=== PATIENT | female | born 1950 | race Caucasian/White ===

== ENCOUNTER 2022-03-14 15:20 | Emergency (ER) | payer BC, SELFPAY ==
[2022-03-14 15:28] VITALS: BP 135/77; PULSE 74; RESP 14; TEMP 36.6; O2SAT 98; BMI 24.4
--- NOTE | 2022-03-14 15:33 | DI.RAD.S_ITS ---
PROCEDURE: XR HAND LT MIN 3V INDICATIONS: fall with hand injury TECHNIQUE: 3 views of the hand(s) acquired. COMPARISON: None. FINDINGS: Bones: There is a fracture of the 5th metacarpal which is obliquely oriented with no significant displacement. An avulsion of the distal phalanx of the thumb on the extensor side at the interphalangeal joint is well corticated and is probably a remote injury. The interphalangeal joints have degenerative changes with joint space narrowing. There are some erosions in the DIP joint of the middle finger. Postoperative changes of the distal radius with a sideplate. There is widening of the scapholunate interval. Soft tissues: No suspicious soft tissue calcifications. IMPRESSION: 1. Fracture of the 5th metacarpal. 2. Remote avulsion fracture versus osteophyte of the thumb interphalangeal joint. 3. Widening of the scapholunate interval suggests scapholunate dissociation. 4. Degenerative changes with erosions of the DIP of the middle phalanx. Dictated by: Kee Cordova M.D. on 03/14/2022 at 16:24 Approved by: Kee Cordova M.D. on 03/14/2022 at 16:27
--- NOTE | 2022-03-14 16:13 | ED.UPPEXIN ---
HPI - Extremity Injury (Upper) <NANI Coates - Last Filed: 03/14/22 19:13> General Chief Complaint: Extremity Injury, Upper Stated Complaint: lt hand injury s/p fall yesterday Time Seen by Provider: 03/14/22 15:39 Source: patient Mode of arrival: Ambulatory History of Present Illness HPI narrative: This is a 71-year-old female presents to the emergency department after she states she tripped on the boat and fell forward striking her hand on the railing injuring the dorsum of her left hand. She denies any mobility deficit, states that she has had multiple fractures and joint replacements in the past with a left hip replacement two months ago. Patient endorses prior history of left wrist surgery but states this has fully healed, she is right-handed, complains of pain on the dorsum of her left hand on the lateral aspect, she is able to flex and extend all her fingers without deficit, denies any numbness or tingling, endorses having bruising to the top of her hand, denies any weakness or hand. She denies any elbow or shoulder pain, denies striking her head, denies any other injury. Patient is here on vacation, states that she has an orthopedist back home in [facility] she can follow-up with. Related Data Allergies Allergy/AdvReac Type Severity Reaction Status Date / Time No Known Drug Allergies Allergy Verified 03/14/22 15:34 Review of Systems <NANI Coates - Last Filed: 03/14/22 19:13> Review of Systems Narrative: General: denies fever, chills, malaise, sweats, fatigue Head/Neck: denies headache, neck pain, dizziness Eyes: denies visual changes, eye pain Cardio: denies chest pain, palpitations, edema Respiratory: denies dyspnea, cough, orthopnea GI: denies abdominal pain, nausea, vomiting, or diarrhea : denies dysuria, hematuria, urinary retention, frequency or incontinence MSK: Endorses left hand pain, bruising, tenderness on the lateral aspect, denies any muscle weakness Skin: denies rash, itching, skin lesions or other Neuro: denies numbness, tingling Patient History <NANI Coates - Last Filed: 03/14/22 19:13> Social History Smoking Status: Unknown if ever smoked Smoking Status: Unknown if ever smoked alcohol intake frequency: holidays/special occasions only Substance Use Type: does not use Exam <NANI Coates - Last Filed: 03/14/22 19:13> Narrative Exam Narrative: Independently reviewed vitals signs and nursing notes. General: cooperative, comfortable, in no acute distress, well groomed Head: atraumatic, symmetrical facial expressions Neck: supple Eyes: equal round and reactive, EOMI, conjunctiva normal Nose: nares patent, no rhinorrhea Mouth/Throat: moist mucus membranes Cardiovascular: regular rate and rhythm, no peripheral edema, warm extremities Respiratory: normal effort, able to speak in complete sentences, no audible wheezing, stridor, or rales. No retractions or tachypnea. GI: abdomen soft, nontender to palpation, nondistended, no masses, no exquisite tenderness with exam, without guarding or rebound. MSK: moves all extremities, neurovascularly intact, no weakness, normal tone Skin: brisk capillary refill, no rash, ecchymoses on the lateral dorsum of her left hand, no break in the skin, full flexion extension is intact of her fingers, no tenderness over the joints of her 5th digit, MCP of the 5th digit, some tenderness along the 5th metacarpal, no tenderness of the left snuffbox, no tenderness over her distal radius or ulna, no wrist pain Neuro: normal speech and cognition, A&O x3 Psych: mental status is grossly normal, congruent mood, normal affect, pleasant and cooperative Initial Vital Signs Initial Vital Signs: Vital Signs Temperature 97.8 F 03/14/22 15:28 Pulse Rate 74 03/14/22 15:28 Respiratory Rate 14 03/14/22 15:28 Blood Pressure 135/77 03/14/22 15:28 Pulse Oximetry 98 03/14/22 15:28 Oxygen Delivery Method 03/14/22 15:28 <Kathy Zacarias DO - Last Filed: 03/16/22 07:14> Initial Vital Signs Initial Vital Signs: Vital Signs Temperature 97.8 F 03/14/22 15:28 Pulse Rate 74 03/14/22 15:28 Respiratory Rate 14 03/14/22 15:28 Blood Pressure 135/77 03/14/22 15:28 Pulse Oximetry 98 03/14/22 15:28 Oxygen Delivery Method 03/14/22 15:28 Procedures <NANI Coates - Last Filed: 03/14/22 19:13> Orthopedic Splinting/Casting Injury #1: Side: left Upper Extremity Injury Location: hand Upper Extremity Immobilizer: sling/shoulder immobilizer and ulnar gutter Post splinting neuro exam: intact and no change Post splinting vascular exam: intact Placed by: Provider Additional Comments: Please see post splinting film Course <NANI Coates - Last Filed: 03/14/22 19:13> Orders Ordered: Discontinued Medications Acetaminophen (Acetaminophen 325 Mg Tablet) 650 mg PO NOW ONE Stop: 03/14/22 16:23 Last Admin: 03/14/22 17:09 Dose: Not Given Documented By: PILY Acetaminophen (Acetaminophen 325 Mg Tablet) 975 mg PO NOW ONE Stop: 03/14/22 16:23 Last Admin: 03/14/22 17:14 Dose: 975 mg Documented By: CTS Vital Signs Vital signs: Vital Signs - 8 hr 03/14/22 15:28 03/14/22 17:46 Temperature 97.8 F Pulse Rate 74 72 Respiratory Rate 14 18 Blood Pressure 135/77 130/70 Pulse Oximetry 98 97 Oxygen Delivery Method Room Air Room Air <Kathy Zacarias DO - Last Filed: 03/16/22 07:14> Orders Ordered: Discontinued Medications Acetaminophen (Acetaminophen 325 Mg Tablet) 650 mg PO NOW ONE Stop: 03/14/22 16:23 Last Admin: 03/14/22 17:09 Dose: Not Given Documented By: CTS Acetaminophen (Acetaminophen 325 Mg Tablet) 975 mg PO NOW ONE Stop: 03/14/22 16:23 Last Admin: 03/14/22 17:14 Dose: 975 mg Documented By: CTS Vital Signs Vital signs: Vital Signs - 8 hr 03/14/22 15:28 03/14/22 17:46 Temperature 97.8 F Pulse Rate 74 72 Respiratory Rate 14 18 Blood Pressure 135/77 130/70 Pulse Oximetry 98 97 Oxygen Delivery Method Room Air Room Air MDM - Extremity Injury (Upper) <NANI Coates - Last Filed: 06/30/22 19:13> Imaging Data Extremity x-ray #1: Radiologist's Impression: PROCEDURE:? XR HAND LT MIN 3V ? INDICATIONS:? fall with hand injury ? TECHNIQUE:? 3 views of the hand(s) acquired.? ? COMPARISON:? None. ? FINDINGS:? ? Bones:? There is a fracture of the 5th metacarpal which is obliquely oriented with no significant displacement.? An avulsion of the distal phalanx of the thumb on the extensor side at the interphalangeal joint is well corticated and is probably a remote injury.? The interphalangeal joints have degenerative changes with joint space narrowing.? There are some erosions in the DIP joint of the middle finger.? Postoperative changes of the distal radius with a sideplate.? There is widening of the scapholunate interval. ? Soft tissues:? No suspicious soft tissue calcifications.? ? ? IMPRESSION:? 1. Fracture of the 5th metacarpal. 2. Remote avulsion fracture versus osteophyte of the thumb interphalangeal joint. 3. Widening of the scapholunate interval suggests scapholunate dissociation. 4. Degenerative changes with erosions of the DIP of the middle phalanx.? ? ? Dictated by: Kee Cordova M.D. on 03/14/2022 at 16:24 ? ? Approved by: Kee Cordova M.D. on 03/14/2022 at 16:27 ? Extremity x-ray #2: My Impression: Post splinting film PROCEDURE:? XR HAND LT 2V ? INDICATIONS:? post splinting ? TECHNIQUE:? 2 views of the hand(s) acquired.? ? COMPARISON:? [facility], , XR HAND LT MIN 3V, 03/14/2022, 15:33. ? FINDINGS:? ? Bones:? Casted views.? Minimally displaced oblique fracture of the shaft of the 5th metacarpal.? Intact distal radial surgical hardware secondary to remote trauma.? Multi digit osteoarthritic change..? Carpal bones are normally aligned.? No suspicious bony lesions.? ? Soft tissues:? No suspicious soft tissue calcifications.? ? ? IMPRESSION:? Unchanged alignment of oblique shaft fracture of the 5th metacarpal. ? ? Dictated by: Espinoza Muiñz M.D. on 03/14/2022 at 17:42 ? ? Approved by: Espinoza Muñiz M.D. on 03/14/2022 at 17:43 ? [facility] Narrative Medical decision making narrative: This is a 71-year-old female with history of multiple fractures in the past, likely osteopenia due to osteoarthritis who presents to the emergency department with left dorsum hand pain along the lateral aspect after she tripped in the boat last night falling forward and having her 5th digit get caught on the railing and pulling laterally away from her hand. She has tenderness along her 5th metacarpal, x-ray is positive for a minimally displaced oblique fracture of the shaft of the 5th metacarpal. She has prior surgical hardware in her distal radius, this was intact, x-ray also shows multi digit osteoarthritic changes, carpal bones are normally aligned, no suspicious bony lesions. Patient is here on vacation, states that she has a orthopedic doctor in [facility] she would like to follow-up with. She was splinted in an ulnar gutter splint with 4 in ortho glass after padding, 4th and 5th digits are in 90 degree flexion. Patient is neurovascularly intact, this is a closed left minimally displaced oblique fracture of the shaft of the 5th metacarpal without other injury. She was splinted, fitted in a sling, encouraged to use Tylenol as needed for her pain. Patient is on Plavix and states that she does not take anti-inflammatories. She is encouraged to follow-up with her orthopedist in one week. She is right-handed, without any neurovascular or sensation deficit. Patient is appropriate and amenable to discharge home. Vital signs are stable on repeat examination is unremarkable. Patient has been informed of results. Patient has been given strict return to ER precautions for any new or worsening symptoms. Patient understands to follow up closely with outpatient providers as instructed. Patient understands plan and agrees to discharge home. All questions and concerns answered at this time. Discharge Plan Departure Patient Disposition: Home Clinical Impression: Fracture of fifth metacarpal bone of left hand Qualifiers: Encounter type: initial encounter Fracture type: closed Metacarpal location: shaft Fracture alignment: nondisplaced Qualified Code(s): S62.357A - Nondisplaced fracture of shaft of fifth metacarpal bone, left hand, initial encounter for closed fracture Instructions: Boxer's Fracture Activity Restrictions/Additional Instructions: *You have been diagnosed with an oblique left 5th metacarpal fracture from your fall last night. Please follow-up with your orthopedist back home when you get there, your x-ray shows a previous avulsion fracture versus osteophyte of the thumb interphalangeal joint, it also shows widening of the scapholunate interval suggesting scapholunate disassociation and degenerative changes with erosions of the DIP of the middle phalanx/you can share this with your orthopedist or have him request records from [facility] and he can view the images themself. Your fracture is well aligned and does not have significant displacement. Please keep it in this position in your splint until you follow-up with them. This will hopefully not require any surgery. Where the sling to help keep it elevated when you are walking or sitting upright for a long period of time. Your splinted in an ulnar gutter splint made from [employer] if they ask. Please use ibuprofen with food and water and or Tylenol for your pain. Ibuprofen is safe if you have something to coat your stomach and you have not had any history of GI bleeding. Tylenol 650 mg every 6 hours is good for daytime pain. Please keep it elevated, ice it, rest it, avoid falling or hitting your hand on anything accidentally. Thank you for trusting us with your care, I hope you feel better soon. Please return for any worsening of your pain, swelling, sensation changes or other before you go home. *What to do: *Please continue to take your regular medications as directed. [ ] New medication prescriptions sent to your pharmacy: [ ] [ ] New medication written as a paper prescription [x] No new medications given *Please follow up with your primary care provider in 2-3 days, call for an appointment. Let them know you were seen in the Emergency Department and that we asked that you be seen for follow-up. We will electronically transmit a record of today's note if your PCP is in our system *If you do not have a primary care provider please contact [phone] to establish care with one of the [facility] primary care providers. *Return to Emergency Department if you should have any new, worsening or concerning symptoms, such as [fever greater than 101F, chills, worsening pain, persistent vomiting or other bothersome symptoms] Visit Report Forms: Patient Portal/API <Kathy Zacarias, - Last Filed: 03/16/22 07:14> Cosign ED Attending Cosignature Attestation: I was immediately available in the department for consultation. Documentation has been reviewed. I agree with assessment and plan.
--- NOTE | 2022-03-14 17:11 | DI.RAD.S_ITS ---
PROCEDURE: XR HAND LT 2V INDICATIONS: post splinting TECHNIQUE: 2 views of the hand(s) acquired. COMPARISON: [facility], CR, XR HAND LT MIN 3V, 03/14/2022, 15:33. FINDINGS: Bones: Casted views. Minimally displaced oblique fracture of the shaft of the 5th metacarpal. Intact distal radial surgical hardware secondary to remote trauma. Multi digit osteoarthritic change.. Carpal bones are normally aligned. No suspicious bony lesions. Soft tissues: No suspicious soft tissue calcifications. IMPRESSION: Unchanged alignment of oblique shaft fracture of the 5th metacarpal. Dictated by: Espinoza Muñiz M.D. on 03/14/2022 at 17:42 Approved by: Espinoza Muñiz M.D. on 03/14/2022 at 17:43
[2022-03-14] MEDS: ACETAMINOPHEN 325 MG TABLET 975 MG PO (17:14)
[2022-03-14 17:46] VITALS: BP 130/70; PULSE 72; RESP 18; O2SAT 97
== END 2022-03-14 17:47 | disposition home or self-care (01) ==
PROVIDERS: Emergency Provider Nurse Practitioner Critical Care Medicine
DX: S62.357A Nondisplaced fracture of shaft of fifth metacarpal bone, left hand, initial encounter for closed fracture (principal); W19.XXXA Unspecified fall, initial encounter
CPT/HCPCS: 29125; 73120; 73130; 99283